=== PATIENT | female | born 1985 | race Caucasian/White ===

== ENCOUNTER 2020-05-07 03:12 | Emergency (ER) | payer OTHER ==
[2020-05-07] MEDS ORDERED: LACTATED RINGERS SOLUTION 1000 ML INFUS.BAG IV ONE (04:25)
[2020-05-07] MEDS ORDERED: morphine CARPU-JECT 4 MG/1 ML DISP.SYRIN IVPUSH ONE (04:26)
[2020-05-07 04:40] VITALS: BMI 28.5
[2020-05-07] MEDS ORDERED: morphine SULFATE 4 MG/ML VIAL ONE (04:45)
[2020-05-07 05:24] LABS: BASO % 0.1 % (0-2.0); EOS % 0.3 % (0-4.5); HEMATOCRIT 37.6 % (32.4-45.2); HEMOGLOBIN 12.6 GM/dL (10.7-15.3); LYMPH % 18.8 % (8-40); MCH 28.2 pg (25.7-33.7); MCHC 33.5 g/dl (32.0-36.0); MEAN CELL VOLUME 84.2 fl (80-96); MEAN PLT VOLUME 8.4 fl (7.5-11.1); MONO % 11.2 % (3.8-10.2); NEUT % 69.6 % (42.8-82.8); PLATELET COUNT 226 K/MM3 (134-434); RBC 4.47 M/mm3 (3.60-5.2); RDW 14.2 % (11.6-15.6); WHITE BLOOD COUNT 5.7 K/mm3 (4.0-10.0)
[2020-05-07 05:43] LABS: POTASSIUM 4.2 mmol/L (3.5-5.1)
[2020-05-07 05:45] LABS: CALCIUM 8.9 mg/dL (8.5-10.1)
[2020-05-07 05:46] LABS: ALBUMIN 3.9 g/dl (3.4-5.0); BLOOD UREA NITROGEN 12.6 mg/dL (7-18)
[2020-05-07] MEDS ORDERED: FAMOTIDINE 20 MG/50 ML IVPB 20 MG/50 ML MG IVPB ONE ×2 (05:49→06:54)
[2020-05-07] MEDS ORDERED: ONDANSETRON 4 MG/2 ML VIAL IVPB ONE (05:49)
[2020-05-07 05:50] LABS: CREATININE 0.6 mg/dL (0.55-1.3)
[2020-05-07 05:51] LABS: BILIRUBIN,TOTAL 0.5 mg/dL (0.2-1)
[2020-05-07] MEDS ORDERED: ONDANSETRON 4 MG/2 ML VIAL ONE (06:54)
[2020-05-07 08:12] VITALS: BP 101/49; PULSE 53; TEMP 98.3
[2020-05-07 08:23] LABS: EPI CELLS 34 /uL (0-25.1); HYALINE CASTS 0 /uL (0-3.1); PH,URINE 7.5 (5.0-8.0); URINE APPEARANCE CLOUDY; URINE BACTERIA >9,000 /uL (0-1359); URINE BILIRUBIN NEGATIVE (NEGATIVE); URINE COLOR YELLOW; URINE GLUCOSE (UA) NEGATIVE (NEGATIVE); URINE KETONE NEGATIVE (NEGATIVE); URINE LEUK ESTERASE TRACE (NEGATIVE); URINE NITRITE NEGATIVE (NEGATIVE); URINE PROTEIN NEGATIVE (NEGATIVE); URINE RBC 2 /uL (0-23.9); URINE UROBILINOGEN 0.2 mg/dL (0.2-1.0); URINE WBC 14 /uL (0-25.8)
== END 2020-05-07 09:28 | disposition home or self-care (01) ==
LOC: JER 03:12
PROC: 3E033NZ Introduction of Analgesics, Hypnotics, Sedatives into Peripheral Vein, Percutaneous Approach (ICD-10-PCS; principal; 2020-05-07)
PROC: 3E033GC Introduction of Other Therapeutic Substance into Peripheral Vein, Percutaneous Approach (ICD-10-PCS; 2020-05-07)
DX: R10.9 Unspecified abdominal pain (principal); Z11.59 Encounter for screening for other viral diseases
CPT/HCPCS: 36415; 71045-TC-FY; 74177-TC; 80053; 81003; 83690; 84703; 85025; 87086; 87186; 93005; 93010; 99285-25; C9803; U0003

== ENCOUNTER 2023-07-29 19:09 | Emergency (ER) | payer OTHER ==
[2023-07-29 19:22] VITALS: BP 113/56; PULSE 60; RESP 20; TEMP 98; BMI 25.2
[2023-07-29] MEDS ORDERED: AMOXICILLIN 250 MG CAPSULE ONE (20:06)
[2023-07-29] MEDS ORDERED: IBUPROFEN 600 MG TABLET (FP) PO ONE (20:07)
[2023-07-29] MEDS: AMOXICILLIN 500 MG CAPSULE (FP) PO ONE (20:10)
[2023-07-29] MEDS: IBUPROFEN 600 MG TABLET (FP) PO ONE (20:10)
== END 2023-07-29 20:25 | disposition home or self-care (01) ==
LOC: JER 19:09 → JERFT 19:09
DX: H92.01 Otalgia, right ear (principal); J02.9 Acute pharyngitis, unspecified; M54.2 Cervicalgia; H66.001 Acute suppurative otitis media without spontaneous rupture of ear drum, right ear
CPT/HCPCS: 99283-25